=== PATIENT | male | born 1960 | race Caucasian/White ===

== ENCOUNTER 2017-06-15 06:16 | Emergency (ER) | payer BC ==
[2017-06-15] MEDS ORDERED: cefTRIAXone 1 GM Vial IM ONE (08:29)
--- NOTE | 2017-06-15 11:45 | ER ---
HISTORY OF PRESENT ILLNESS: A 57-year-old male, who comes in with complaints of a flare up of involving a cyst in the groin area. He states he has had this cyst for several years. It has drained multiple times. He has been on antibiotics several times. He has not had any surgical repair in the past. He states he has had ongoing symptoms once again since Sunday. It has been draining spontaneously. The patient has not been running a fever and does not feel sick. OBJECTIVE: GENERAL APPEARANCE: The patient is awake and alert, no obvious distress. VITAL SIGNS: Reviewed, they are unremarkable. Examining the patient's groin area reveals chronic inflammation and mild swelling involving the area behind the scrotum and both sides of the groin. There is an opening in the skin that looks like a fissure. This is again chronic in nature. There is no active drainage at this time. The area around the opening is tender, but not fluctuant. 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 TREATMENT PLAN: Rocephin 1 g IM, I will also start the patient on Augmentin 875 b.i.d. for 10 days. I advised patient to follow up early next week in the clinic. He may need a surgical consult. The patient agrees to do this. He also is wondering about a refill of his NovoLog, which I will give 1 refill. The patient is working in this area, but lives in [place]. He has no further questions. CRS/MODL /[id number]
== END 2017-06-15 08:45 | disposition home or self-care (01) ==
LOC: LB.ED 06:16
DX: L02.214 Cutaneous abscess of groin (principal)
CPT/HCPCS: 96372; 99283-25